=== PATIENT | female | born 1960 | race Caucasian/White ===

== ENCOUNTER 2016-12-31 07:59 | Day surgery (SDC) | payer OTHER ==
[2016-12-31] MEDS ORDERED: MIDAZOLAM 2 MG/2 ML SOL ONE (08:20)
[2016-12-31] MEDS ORDERED: LIDOCAINE HCL 1% MPF SOL ONE (08:20)
[2016-12-31] MEDS ORDERED: ONDANSETRON HCL 4 MG/2 ML SOL ONE (08:20)
[2016-12-31] MEDS ORDERED: PROPOFOL 500 MG/50 ML EMU IV ONE (08:20)
[2016-12-31] MEDS ORDERED: FENTANYL 100MCG/2ML SOL ONE (08:21)
[2016-12-31] MEDS ORDERED: LIDOCAINE HCL 2% MPF SOL ONE (08:50)
[2016-12-31] MEDS: BUPIVACAINE HCL 0.5% MPF 10 ML SOL ONE ×2 (09:34→09:45)
[2016-12-31] MEDS: LIDOCAINE HCL 2% MPF SOL ONE ×2 (09:34→09:45)
[2016-12-31 10:07] VITALS: TEMP 98
[2016-12-31 10:26] VITALS: RESP 16
[2016-12-31 10:43] VITALS: BP 131/82; PULSE 55; O2SAT 95
== END 2016-12-31 11:17 | disposition home or self-care (01) | DRG 74 ==
LOC: SURG 07:59
PROVIDERS: ATTEND Orthopaedic Surgery
DX: G56.03 Carpal tunnel syndrome, bilateral upper limbs (principal)
CPT/HCPCS: J2250; J2405; J3010; A6402; J2001; J2704

== ENCOUNTER 2018-04-18 07:14 | Day surgery (SDC) | payer OTHER ==
[2018-04-18 07:34] VITALS: O2SAT 98
[2018-04-18] MEDS ORDERED: BUPIVACAINE HCL 0.25% MPF 30 ML SOL INFIL ONE (07:54)
[2018-04-18 08:09] VITALS: PULSE 68
[2018-04-18] MEDS: DEXAMETHASONE SOD PHOS PF 10 MG/ML SOL IJ ONE ×2 (08:09→08:14)
[2018-04-18 08:26] VITALS: BP 132/79; RESP 16; TEMP 97.6
== END 2018-04-18 08:43 | disposition home or self-care (01) | DRG 552 ==
LOC: SURG 07:14
PROVIDERS: ATTEND Nurse Anesthetist, Certified Registered
DX: M51.17 Intervertebral disc disorders with radiculopathy, lumbosacral region (principal)
CPT/HCPCS: J1100

== ENCOUNTER 2018-05-23 09:55 | Emergency (ER) | payer OTHER ==
[2018-05-23 10:08] VITALS: RESP 18; TEMP 97.6
[2018-05-23] MEDS ORDERED: SODIUM CHLORIDE 0.9% 1000ML 1,000 ML IV ONE (10:22)
[2018-05-23] MEDS ORDERED: KETOROLAC TROMETHAMINE 30 MG/ML SOL IV ONE (10:23)
[2018-05-23 10:33] LABS: BASOPHILS % (AUTO) 0 % (0-3); EOSINOPHILS % (AUTO) 0 % (0-9); HEMATOCRIT 39 % (35-47); HEMOGLOBIN 13.2 gm/dl (12.0-15.5); LYMPHOCYTES % (AUTO) 11.6 % (10-50); MEAN CORPUSCULAR HEMOGLOBIN 29.4 pg (27.0-32.0); MEAN CORPUSCULAR HGB CONC 33.5 gm/dl (32.0-36.0); MEAN CORPUSCULAR VOLUME 88 fL (81-99); NEUTROPHILS % (AUTO) 82.8 % (37-80)
[2018-05-23 10:49] LABS: ALBUMIN 3.9 gm/dl (3.4-5.0); ALKALINE PHOSPHATASE 114 IU/L (46-116); ALT 25 IU/L (14-63); AST 16 IU/L (15-37); BILIRUBIN,TOTAL 0.4 mg/dl (0.2-1.0); BLOOD UREA NITROGEN 17 mg/dl (7-18); CALCIUM 9.2 mg/dl (8.5-10.1); CARBON DIOXIDE 29.5 mEq/L (21-32); CHLORIDE 106 mMol/L (98-107); CREATININE 0.71 mg/dl (0.60-1.00); GLUCOSE 110 mg/dl (74-106); POTASSIUM 4.6 mMol/L (3.5-5.1); SODIUM 141 mMol/L (136-145); TOTAL PROTEIN 6.6 gm/dl (6.4-8.2); TROP I < 0.017 ng/ml (0.000-0.056)
[2018-05-23 11:09] LABS: APPEARANCE,URINE Cloudy; BILIRUBIN,URINE NEGATIVE (NEGATIVE); COLOR,URINE Yellow; GLUCOSE, URINE (UA) NEGATIVE (NEGATIVE); KETONES,URINE NEGATIVE (NEGATIVE); LEUKOCYTE ESTERASE ,URINE TRACE (NEGATIVE); NITRATE,URINE POSITIVE (NEGATIVE); OCCULT BLOOD,URINE NEGATIVE (NEG-TRACE); UROBILINOGEN,URINE 0.2 (0.2-1.0 EU)
[2018-05-23] MEDS ORDERED: KETOROLAC TROMETHAMINE 30 MG/ML SOL ONE (11:09)
[2018-05-23 11:24] LABS: BACTERIA 4+ (< 1+); CRYSTALS UNABLE (0-3 AVE/HPF); EPITHELIAL CELLS UNABLE (SQUAMOUS); RBC,URINE UNABLE (0-3AV/HPF); WBC,URINE UNABLE (0-5AV/HPF)
[2018-05-23] MEDS ORDERED: CEFTRIAXONE 1 GM PDS 1 GM in SODIUM CHLORIDE 0.9% 50 ML 50 ML IV ONE (11:32)
[2018-05-23] MEDS ORDERED: CEFTRIAXONE 1 GM PDS ONE (12:00)
[2018-05-23 14:53] VITALS: BP 129/75; PULSE 57; O2SAT 96
== END 2018-05-23 13:00 | disposition home or self-care (01) | DRG 552 ==
LOC: ED 09:55
DX: M54.16 Radiculopathy, lumbar region (principal); R55 Syncope and collapse
CPT/HCPCS: 36415; 71045; 72190; 80053; 81001; 84484; 85025; 85378; 87077; 87088; 87186; 93005; 96365; 96366; 96374; 99070; 99284; J0696; J1885